=== PATIENT | male | born 1960 | race Caucasian/White ===

== ENCOUNTER 2019-11-29 18:20 | Day surgery (SDC) | payer OTHER, BC ==
[~2019-11-29] VITALS: Ht 182.9 cm; Wt 107.5 kg
--- NOTE | 2019-11-29 17:55 | NUR ---
11/29/19 1755 Sonia Marcos 1658 PT ARRIVED IN PACU RESPONSIVE WITH OPA IN PLACE. 165 ANESTHESIA REMOVED OPA. 1705 PT SLEEPY WITH NO C/O'S. 1720 C/O R SHOULDER PAIN 06/26. DECLINED PAIN MED WHEN OFFERED. CRYO CUFF PLACED PER DR ORDERS. 1730 OFFERED ANESTHESIA TO REDOSE BLOCK IN R SHOULDER. PT DECLINED. TAKING SIPS OF WATER. 1745 TO MED SURG ROOM 114. REPORT GIVEN TO ANGEL CAMARGO. AT BEDSIDE.
[~2019-11-29 18:20] MED LIST: DICLOFENAC SODI75 MG PO; LISINOPRIL10 MG PO; NORCO 7.5-3251 EACH PO
--- NOTE | 2019-11-30 07:54 | OR ---
[facility] [address], [place] [address] Signed DATE OF OPERATION: 11/29/2019 SURGEON: Rima Hernandez MD PREOPERATIVE DIAGNOSIS: Partial rotator cuff tear, right shoulder. POSTOPERATIVE DIAGNOSES: 1. Partial rotator cuff tear, right shoulder. 2. Labral tear, right shoulder. PROCEDURES PERFORMED: 1. Right shoulder arthroscopy with limited debridement. 2. Labral repair. ASSISTANTS: 1. Jacqueline Coppola PA-C. Jacqueline was present and critical for all portions of procedure. 2. PANCHO Nunez. ANESTHESIA: General. BLOOD LOSS: Minimal. IMPLANTS: Two Arthrex push locks. BRIEF HISTORY: Dana is a 59-year-old gentleman with pain in his shoulder. He had undergone extensive nonoperative treatment and was found to have a partial rotator cuff tear on his MRI. It was a non-arthrographic MRI and labral tear was not noted. Once he had failed nonoperative treatment, risks and benefits of operative debridement and possible repair of the rotator cuff were discussed with him and he elected to proceed. Once consent was obtained, he was taken to the operating room. After adequate anesthesia, he was placed in a beach chair position. All downside pressure points well padded. The shoulder was prepped and draped in a standard sterile fashion. The shoulder was injected with 15 mL 0.25% Marcaine with epinephrine as was subacromial space. Standard posterior portal was made and the scope was introduced in the shoulder. 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 The labrum was noted to be torn from about the 5 o'clock position to the 1 o'clock position. The biceps and biceps anchor were stable. Undersurface of the rotator cuff showed some mild fraying and a longitudinal tear, which was likely the anterior superior portal from the prior surgery. Subacromial space showed no significant bursitis. DESCRIPTION OF OPERATION: Standard anterior and anterior superior portals were established. The glenoid rim was debrided with the red rasp and katie. Good bleeding bony bed was obtained. Once this was accomplished, two labral tapes were placed in a Lasso configuration around the labrum at the 4 o'clock and 1:30 positions. These were then placed through the PushLocks and PushLock holes were drilled in the anterior labrum. The labrum was then repaired down to the bone quite tightly. The suture ends were cut. The water was switched off. Excellent bleeding was noted from the bony holes and the glenoid rim itself. There was excellent tightness to the labrum. The scope was withdrawn, placed in subacromial space and the bursoscopy was undertaken. This was found to be intact and no further work was done. The portals were closed with 3-0 nylon, dressed with appropriate dressing. He was awakened and taken to the recovery room in satisfactory condition. All sponge, needle, and instrument counts were correct. Rima Hernandez MD BA/MUMTAZ /[id number] Copies: ~ Electronically Signed By: RIMA HERNANDEZ MD 11/30/19 0754 PATIENT NAME: DANA TORRE GARRET OPERATIVE REPORT DATE OF : 60 REPORT #: [id number] PHYSICIAN: RIMA HERNANDEZ MD PCP: SANTOS SORIANO REPORT IS CONFIDENTIAL AND NOT TO BE RELEASED WITHOUT AUTHORIZATION
== END 2019-11-29 19:13 | disposition home or self-care (01) ==
LOC: DS 18:20 → MS 18:20 → DS 19:13
PROVIDERS: ATTEND Specialist
PROC: 0MM14ZZ Reattachment of Right Shoulder Bursa and Ligament, Percutaneous Endoscopic Approach (ICD-10-PCS; principal; 2019-11-29 13:00)
DX: S46.011A Strain of muscle(s) and tendon(s) of the rotator cuff of right shoulder, initial encounter (principal); M94.211 Chondromalacia, right shoulder; I10 Essential (primary) hypertension; K21.9 Gastro-esophageal reflux disease without esophagitis; Z79.899 Other long term (current) drug therapy; Z98.890 Other specified postprocedural states; Z87.891 Personal history of nicotine dependence; Y04.2XXA Assault by strike against or bumped into by another person, initial encounter
CPT/HCPCS: 00450; 64415; 76942; A9270; C1713; J0690; J1100; J1885; J2001; J2250; J2405; J2704; J2795; J3010; J7121